=== PATIENT | male | born 1985 ===

== ENCOUNTER 2018-06-05 22:32 | Emergency (ER) | payer SELFPAY ==
[~2018-06-05] VITALS: Ht 180.3 cm; Wt 102.1 kg
--- NOTE | 2018-06-05 22:48 | NUR ---
Dr. New at bedside for MSE.
[2018-06-05] MEDS ORDERED: HYDROCODONE/APAP 5-325MG TABLET ONE (22:55)
[2018-06-05] MEDS ORDERED: HYDROCODONE/APAP 5-325MG TABLET PO ONE (23:00)
[2018-06-05 23:03] VITALS: BP 114/72
== END 2018-06-05 23:04 | disposition home or self-care (01) ==
LOC: ER 22:37
DX: M26.609 Unspecified temporomandibular joint disorder, unspecified side (principal); K08.89 Other specified disorders of teeth and supporting structures; F17.200 Nicotine dependence, unspecified, uncomplicated; G89.29 Other chronic pain; M54.9 Dorsalgia, unspecified; M25.569 Pain in unspecified knee
CPT/HCPCS: A4663

== ENCOUNTER 2018-09-23 19:38 | Emergency (ER) | payer MEDICAID ==
[~2018-09-23] VITALS: Ht 180.3 cm; Wt 97.5 kg
[2018-09-23] MEDS ORDERED: ACETAMINOPHEN ES 500 MG TABLET PO ONE (21:00)
[2018-09-23] MEDS ORDERED: ACETAMINOPHEN ES 500 MG TABLET ONE (21:01)
--- NOTE | 2018-09-23 21:05 | NUR ---
Patient discharged to home in stable conditon. Written and verbal after care instructions given. Patient verbalizes understanding of instructions.
[2018-09-23 21:06] VITALS: BP 110/76
== END 2018-09-23 21:07 | disposition home or self-care (01) ==
LOC: ER 19:40
DX: J11.1 Influenza due to unidentified influenza virus with other respiratory manifestations (principal); F17.200 Nicotine dependence, unspecified, uncomplicated
CPT/HCPCS: A4663; A9150

== ENCOUNTER 2019-06-11 23:19 | Emergency (ER) | payer SELFPAY ==
[~2019-06-11] VITALS: Ht 175.3 cm; Wt 92.1 kg
--- NOTE | 2019-06-12 00:34 | NUR ---
DR. COUCH AT BEDSIDE FOR MSE.
[2019-06-12] MEDS ORDERED: KETOROLAC TROMETHAMINE 60 MG INJ IM ONE ×2 (00:45→00:46)
[2019-06-12 00:54] LABS: BASOPHILS % (AUTO) 0.5 % (0.0-2.0); EOSINOPHILS # (AUTO) 0.1 K/uL (0.0-0.7); EOSINOPHILS % (AUTO) 0.8 % (0.0-7.0); HEMATOCRIT 45.6 % (36.7-47.1); HEMOGLOBIN 15.5 g/dL (12.5-16.3); LYMPHOCYTES # (AUTO) 2.4 K/uL (20.0-40.0); LYMPHOCYTES % (AUTO) 28.1 % (20.5-51.5); MEAN CORPUSCULAR HEMOGLOBIN 29.9 uug (23.8-33.4); MEAN CORPUSCULAR HGB CONC 34 g/dL (32.5-36.3); MEAN CORPUSCULAR VOLUME 87.8 fL (73.0-96.2); MONOCYTES # (AUTO) 0.5 K/uL (2.0-10.0); MONOCYTES % (AUTO) 6.5 % (0.0-11.0); NEUTROPHILS # (AUTO) 5.4 K/uL (1.8-8.9); NEUTROPHILS % (AUTO) 64.1 % (38.5-71.5); PLATELET COUNT (AUTO) 272 K/uL (152-348); RED BLOOD CELL COUNT(AUTO) 5.19 MIL/uL (4.06-5.63); WHITE BLOOD COUNT (AUTO) 8.5 K/uL (3.6-10.2)
[2019-06-12 01:04] LABS: BILIRUBIN,DIRECT 0.1 mg/dL (0.0-0.2); BILIRUBIN,TOTAL 0.2 mg/dL (0.2-1.0); POTASSIUM 4.1 mmol/L (3.5-5.1); TOTAL PROTEIN, SERUM 7.7 g/dL (6.4-8.2)
--- NOTE | 2019-06-12 02:29 | NUR ---
Patient discharged to home in stable conditon. Written and verbal after care instructions given. Patient verbalizes understanding of instructions. patient left with stable gait.
[2019-06-12 02:30] VITALS: BP 114/75
== END 2019-06-12 02:30 | disposition home or self-care (01) ==
LOC: ER 23:20
DX: M51.26 Other intervertebral disc displacement, lumbar region (principal); F17.200 Nicotine dependence, unspecified, uncomplicated
CPT/HCPCS: 36415; 72131; 80048; 80076; 85025; 85651; 96372; 99284; J1885; A4663